=== PATIENT | male | born 1965 | race Caucasian/White ===

== ENCOUNTER 2017-01-18 06:34 | Emergency (ER) | payer OTHER ==
[~2017-01-18] VITALS: Ht 180.3 cm; Wt 79.4 kg
[~2017-01-18 06:34] MED LIST: NORCO 10MG-325MG1 EA PO; SOMA350 MG PO; Z.0.SOMA350 MG PO; [UNRECOGNIZED DRUG - OTHER] PO
[2017-01-18 07:11] LABS: BASOPHILS % 0.5 % (0.0-1.0); EOSINOPHILS # (AUTO) 0.1 (0.0-0.4); EOSINOPHILS % 1.1 % (0.0-6.0); HEMATOCRIT 44.6 % (38.2-49.6); HEMOGLOBIN 15.5 g/dL (14.0-18.0); LYMPHOCYTES # (AUTO) 2.6 (1.0-3.2); LYMPHOCYTES % 33.3 % (18.0-39.1); MEAN CORPUSCULAR HEMOGLOBIN 32.3 pg (28-32); MEAN CORPUSCULAR HGB CONC 34.8 g/dL (31-35); MEAN CORPUSCULAR VOLUME 92.9 fL (81-99); MONOCYTES # (AUTO) 0.8 (0.2-0.8); MONOCYTES % 9.6 % (4.4-11.3); NEUTROPHILS # (AUTO) 4.3 (2.1-6.9); NEUTROPHILS % 55.1 % (38.7-80.0); PLATELET COUNT 158 x10e3/uL (140-360); RED CELL DISTRIBUTION WIDTH 12.1 % (11.7-14.4)
--- NOTE | 2017-01-18 07:15 | Diagnostic Imaging Report ---
PROCEDURE: CHEST SINGLE (PORTABLE) COMPARISON: 12/28/2011. INDICATIONS: PNEUMONIA, SHORTNESS OF BREATH, WEAKNESS, COUGH FINDINGS: The lungs remain well inflated. No focal airspace consolidation, pleural effusion, or pneumothorax. Tortuosity of the thoracic aorta with an otherwise normal cardiomediastinal contour. No acute osseous abnormality. CONCLUSION: No acute cardiopulmonary abnormality. Dictated by: Markel Sarmiento M.D. on 01/18/2017 at 7:22 Electronically approved by: Markel Sarmiento M.D. on 01/18/2017 at 7:22
[2017-01-18 07:26] LABS: ALANINE AMINOTRANSFERASE 29 IU/L (0-55); ALBUMIN 4.2 g/dL (3.5-5.0); ALBUMIN/GLOBULIN RATIO 1.3 (0.8-2.0); ALKALINE PHOSPHATASE 96 IU/L (40-150); ANION GAP 11.2 mmol/L (8-16); BLOOD UREA NITROGEN 14 mg/dL (7-26); BUN/CREATININE RATIO 15 (6-25); CALCIUM 9.2 mg/dL (8.4-10.2); CARBON DIOXIDE 24 mmol/L (22-29); CHLORIDE 107 mmol/L (98-107); CREATININE, SERUM 0.91 mg/dL (0.72-1.25); EST GLOMERULAR FILTRATION RATE > 60 ML/MIN (60-); GLUCOSE 91 mg/dL (74-118); POTASSIUM 4.2 mmol/L (3.5-5.1); SODIUM 138 mmol/L (136-145)
[2017-01-18 07:34] LABS: INFLUENZAE A&B ANTIGEN (RAPID) NEGATIVE (NEGATIVE); STREPTOCOCCUS GRP A ANTIGEN NEGATIVE (NEGATIVE)
[2017-01-18 08:03] VITALS: BP 134/87
== END 2017-01-18 08:21 | disposition home or self-care (01) ==
LOC: ER 06:34
DX: R05 Cough (principal); J20.9 Acute bronchitis, unspecified; M54.2 Cervicalgia; G89.29 Other chronic pain; F17.210 Nicotine dependence, cigarettes, uncomplicated
CPT/HCPCS: 36415; 71010; 80053; 83518; 85025; 87070; 87400; 93005; 99284

== ENCOUNTER 2017-01-25 09:32 | Emergency (ER) | payer OTHER ==
[~2017-01-25] VITALS: Ht 180.3 cm; Wt 79.4 kg
[2017-01-25 11:47] LABS: BILIRUBIN,URINE NEGATIVE (NEGATIVE); KETONES,URINE NEGATIVE (NEGATIVE); LEUKOCYTE ESTERASE ,URINE NEGATIVE (NEGATIVE); NITRITE,URINE NEGATIVE (NEGATIVE); PROTEIN,URINE DIPSTICK NEGATIVE (NEGATIVE); URINE UROBILINOGEN 0.2 mg/dL (0.2 - 1)
[2017-01-25 11:54] LABS: AMPHETAMINES SCREEN,URINE NEGATIVE (NEGATIVE); BENZODIAZEPINES SCREEN,URINE NEGATIVE (NEGATIVE); CANNABINOIDS SCREEN,URINE POSITIVE (NEGATIVE); PHENCYCLIDINE SCREEN,URINE NEGATIVE (NEGATIVE)
[2017-01-25 12:03] LABS: AMORPHOUS SEDIMENT,URINE MODERATE (FEW); BACTERIA,URINE RARE /HPF; CLARITY,URINE SL CLOUDY (CLEAR); COLOR,URINE YELLOW (YELLOW); EPITHELIAL CELLS,URINE RARE /LPF
--- NOTE | 2017-01-25 13:04 | Diagnostic Imaging Report ---
PROCEDURE:CHEST SINGLE (NOT PORTABLE) TECHNIQUE:PA chest INDICATION:Chest and leg pain. COMPARISON:[facility], , CHEST SINGLE (PORTABLE), 01/18/2017, 6:48. FINDINGS: Lungs are clear and symmetrically inflated. No pleural effusions. Normal heart size, mediastinal contour, and pulmonary vasculature. Intact skeleton. CONCLUSION: Stable normal chest. Dictated by: Jed Horton M.D. on 01/25/2017 at 13:12 Electronically approved by: Jed Horton M.D. on 01/25/2017 at 13:12
[2017-01-25 13:10] LABS: BASOPHILS # (AUTO) 0.1 (0.0-0.1); BASOPHILS % 0.6 % (0.0-1.0); EOSINOPHILS # (AUTO) 0.2 (0.0-0.4); EOSINOPHILS % 1.1 % (0.0-6.0); HEMATOCRIT 44.8 % (38.2-49.6); HEMOGLOBIN 15.5 g/dL (14.0-18.0); LYMPHOCYTES # (AUTO) 4.5 (1.0-3.2); LYMPHOCYTES % 33.1 % (18.0-39.1); MEAN CORPUSCULAR HEMOGLOBIN 32.4 pg (28-32); MEAN CORPUSCULAR HGB CONC 34.6 g/dL (31-35); MEAN CORPUSCULAR VOLUME 93.7 fL (81-99); MONOCYTES # (AUTO) 1.1 (0.2-0.8); MONOCYTES % 8.1 % (4.4-11.3); NEUTROPHILS # (AUTO) 7.6 (2.1-6.9); NEUTROPHILS % 56.2 % (38.7-80.0); PLATELET COUNT 228 x10e3/uL (140-360); RED BLOOD COUNT 4.78 x10e6/uL (4.3-5.7)
[2017-01-25 13:17] LABS: INR 0.82; PARTIAL THROMBOPLASTIN TIME 27.4 seconds (23.8-35.5); PROTHROMBIN TIME 11.7 seconds (11.9-14.5)
[2017-01-25 13:26] LABS: ALANINE AMINOTRANSFERASE 25 IU/L (0-55); ALBUMIN 4.1 g/dL (3.5-5.0); ALBUMIN/GLOBULIN RATIO 1.2 (0.8-2.0); ALKALINE PHOSPHATASE 100 IU/L (40-150); BLOOD UREA NITROGEN 13 mg/dL (7-26); BUN/CREATININE RATIO 15 (6-25); CALCIUM 9.2 mg/dL (8.4-10.2); CARBON DIOXIDE 24 mmol/L (22-29); CHLORIDE 110 mmol/L (98-107); CREATINE KINASE 66 IU/L (30-200); CREATININE, SERUM 0.88 mg/dL (0.72-1.25); EST GLOMERULAR FILTRATION RATE > 60 ML/MIN (60-); GLUCOSE 107 mg/dL (74-118); SODIUM 143 mmol/L (136-145)
[2017-01-25 13:34] LABS: TROPONIN I 0.014 ng/mL (0-0.300)
== END 2017-01-25 14:34 | disposition home or self-care (01) ==
LOC: ER 09:32
DX: R07.89 Other chest pain (principal); K75.9 Inflammatory liver disease, unspecified; M54.2 Cervicalgia; G89.29 Other chronic pain
CPT/HCPCS: 36415; 71010; 80053; 80307; 81001; 82550; 82553; 83735; 83880; 84484; 85025; 85379; 85610; 85730; 87086; 93005; 99283

== ENCOUNTER 2017-01-30 12:38 | Observation (INO) | payer BC, OTHER ==
[~2017-01-30] VITALS: Ht 180.3 cm; Wt 79.4 kg
[2017-01-30] MEDS ORDERED: ASPIRIN 81 MG CHEW TAB PO ONE (13:00)
[2017-01-30 13:18] LABS: BASOPHILS # (AUTO) 0.1 (0.0-0.1); BASOPHILS % 0.5 % (0.0-1.0); EOSINOPHILS # (AUTO) 0.1 (0.0-0.4); HEMATOCRIT 44.3 % (38.2-49.6); HEMOGLOBIN 15.1 g/dL (14.0-18.0); LYMPHOCYTES # (AUTO) 3.8 (1.0-3.2); LYMPHOCYTES % 35.3 % (18.0-39.1); MEAN CORPUSCULAR HEMOGLOBIN 32.3 pg (28-32); MEAN CORPUSCULAR HGB CONC 34.1 g/dL (31-35); MEAN CORPUSCULAR VOLUME 94.7 fL (81-99); MONOCYTES # (AUTO) 0.9 (0.2-0.8); MONOCYTES % 8.4 % (4.4-11.3); NEUTROPHILS # (AUTO) 5.9 (2.1-6.9); NEUTROPHILS % 54.4 % (38.7-80.0); PLATELET COUNT 159 x10e3/uL (140-360); RED BLOOD COUNT 4.68 x10e6/uL (4.3-5.7); RED CELL DISTRIBUTION WIDTH 12.2 % (11.7-14.4)
[2017-01-30 13:20] LABS: BILIRUBIN,URINE NEGATIVE (NEGATIVE); KETONES,URINE NEGATIVE (NEGATIVE); LEUKOCYTE ESTERASE ,URINE NEGATIVE (NEGATIVE); NITRITE,URINE NEGATIVE (NEGATIVE); PROTEIN,URINE DIPSTICK NEGATIVE (NEGATIVE); URINE UROBILINOGEN 0.2 mg/dL (0.2 - 1)
--- NOTE | 2017-01-30 13:29 | Diagnostic Imaging Report ---
PROCEDURE: A single AP view of the chest. COMPARISON: 01/25/2017 INDICATIONS: CHEST PAIN, SHORTNESS OF BREATH FINDINGS: Lines/tubes: None. Lungs: The lungs are well inflated and clear. There is no evidence of pneumonia or pulmonary edema. Pleura: There is no pleural effusion or pneumothorax. Heart and mediastinum: The heart and the mediastinum are unremarkable. Bones: No acute bony abnormality. IMPRESSION: 1. No acute cardiopulmonary disease. Dictated by: Mak Bran M.D. on 01/30/2017 at 13:37 Electronically approved by: Mak Bran M.D. on 01/30/2017 at 13:37
[2017-01-30 13:30] LABS: INR 0.87; PROTHROMBIN TIME 12.3 seconds (11.9-14.5)
[2017-01-30 13:36] LABS: CLARITY,URINE SL CLOUDY (CLEAR); COLOR,URINE YELLOW (YELLOW); EPITHELIAL CELLS,URINE RARE /LPF
[2017-01-30 13:39] LABS: ALANINE AMINOTRANSFERASE 28 IU/L (0-55); ALBUMIN 4.1 g/dL (3.5-5.0); ALBUMIN/GLOBULIN RATIO 1.2 (0.8-2.0); ALKALINE PHOSPHATASE 78 IU/L (40-150); ANION GAP 12.9 mmol/L (8-16); BLOOD UREA NITROGEN 16 mg/dL (7-26); BUN/CREATININE RATIO 17 (6-25); CARBON DIOXIDE 23 mmol/L (22-29); CHLORIDE 109 mmol/L (98-107); CREATINE KINASE 79 IU/L (30-200); CREATININE, SERUM 0.93 mg/dL (0.72-1.25); EST GLOMERULAR FILTRATION RATE > 60 ML/MIN (60-); GLUCOSE 99 mg/dL (74-118); POTASSIUM 4.9 mmol/L (3.5-5.1); SODIUM 140 mmol/L (136-145)
[2017-01-30 13:41] LABS: AMPHETAMINES SCREEN,URINE NEGATIVE (NEGATIVE); BENZODIAZEPINES SCREEN,URINE NEGATIVE (NEGATIVE); CANNABINOIDS SCREEN,URINE POSITIVE (NEGATIVE); PHENCYCLIDINE SCREEN,URINE NEGATIVE (NEGATIVE)
[2017-01-30 13:45] LABS: PARTIAL THROMBOPLASTIN TIME 27.7 seconds (23.8-35.5)
[2017-01-30 13:48] LABS: TROPONIN I 0.011 ng/mL (0-0.300)
[2017-01-30] MEDS ORDERED: NITROGLYCERIN 0.4 MG SUBL SL PRN (16:15)
[2017-01-30] MEDS ORDERED: SODIUM CHLORIDE FLUSH 10 ML SYR INJ PRN (16:15)
[2017-01-30] MEDS ORDERED: ONDANSETRON HCL INJ 2 MG/ML VIAL IV PRN (16:15)
[2017-01-30] MEDS: ASPIRIN 81 MG CHEW TAB PO ONE ×2 (17:42→18:20)
--- NOTE | 2017-01-30 17:58 | History and Physical ---
DATE OF CONSULTATION: January 30, 2017 CHIEF COMPLAINT: The patient is a 51-year-old with chest pain. HISTORY OF PRESENT ILLNESS: The patient is a 51-year-old who has been having chest tightness and chest pain at home. The patient had a stress test done in my office last Sunday which was suggestive of ischemia. The patient was scheduled electively for a cardiac catheterization this Sunday on the 02 of February. Today, the patient developed worsening chest pain and decided to come to the emergency room. The patient's chest pain is subsequently resolved. PAST MEDICAL HISTORY: Significant for chronic back pain. CURRENT MEDICATIONS: [place], [place] and hydrocodone. SOCIAL HISTORY: The patient has been a heavy smoker. The patient does not drink. FAMILY HISTORY: There is family history of hypertension and heart disease. PHYSICAL EXAMINATION GENERAL: The patient is a well-nourished, well-developed male in no obvious distress. VITAL SIGNS: Temperature 98.8, pulse 68, blood pressure 130/86. HEENT: The patient's cranium was normocephalic and atraumatic. Extraocular muscles were intact. Sclerae was anicteric. Pupils were equal, around and reactive to light. There is no pallor or cyanosis of the oral mucosa. There is no erythema or edema of the throat. NECK: Supple. No jugular venous distention. No carotid bruits. CHEST: Demonstrated decreased breath sounds and rhonchi bilaterally. CARDIAC: Demonstrated normal S1 and S2 with short 2/6 systolic murmur. ABDOMEN: Demonstrated good bowel sounds, nontender and no masses. EXTREMITIES: No cyanosis, clubbing or edema. NEUROLOGIC: The patient was alert and oriented x3. Cranial nerves II-XII intact. Motor strength was 5/5 in all limbs. The patient's EKG demonstrated normal sinus rhythm with a normal record. IMPRESSION: The patient is a 51-year-old heavy smoker with recurrent chest pain concerning for angina. The patient will be admitted. The cardiac catheterization has been scheduled for tomorrow at noon. Job#: [id number]
[2017-01-30] MEDS: SODIUM CHLORIDE 0.9% 1000ML 1,000 ML IV SCH (18:20)
[2017-01-30] MEDS: NITROGLYCERIN 2% OINT 1 GM PKT TOP SCH (18:20)
[2017-01-30] MEDS: FAMOTIDINE 20 MG TAB PO SCH (18:20)
[2017-01-30] MEDS: MORPHINE SULFATE 2 MG/ML SYR IV PRN ×2 (20:01→23:50)
[2017-01-30 21:01] LABS: TROPONIN I 0.016 ng/mL (0-0.300)
[2017-01-30 22:40] VITALS: BP 107/71
[2017-01-30 23:18] VITALS: BP 117/71
[2017-01-30] MEDS ORDERED: MOTRIN200 MG PO (23:20)
[2017-01-31] MEDS: NITROGLYCERIN 2% OINT 1 GM PKT TOP SCH ×3 (01:03→12:00)
[2017-01-31] MEDS: MORPHINE SULFATE 2 MG/ML SYR IV PRN ×5 (03:29→22:25)
[2017-01-31 04:00] VITALS: BP 99/60
[2017-01-31] MEDS: FAMOTIDINE 20 MG TAB PO SCH ×2 (04:48→17:42)
[2017-01-31 06:57] LABS: BASOPHILS % 0.4 % (0.0-1.0); EOSINOPHILS # (AUTO) 0.1 (0.0-0.4); EOSINOPHILS % 1.1 % (0.0-6.0); HEMATOCRIT 40.4 % (38.2-49.6); HEMOGLOBIN 13.7 g/dL (14.0-18.0); LYMPHOCYTES # (AUTO) 3.1 (1.0-3.2); LYMPHOCYTES % 32.4 % (18.0-39.1); MEAN CORPUSCULAR HEMOGLOBIN 32.3 pg (28-32); MEAN CORPUSCULAR HGB CONC 33.9 g/dL (31-35); MEAN CORPUSCULAR VOLUME 95.3 fL (81-99); MONOCYTES # (AUTO) 0.8 (0.2-0.8); MONOCYTES % 8.5 % (4.4-11.3); NEUTROPHILS # (AUTO) 5.4 (2.1-6.9); NEUTROPHILS % 57.2 % (38.7-80.0); PLATELET COUNT 141 x10e3/uL (140-360); RED BLOOD COUNT 4.24 x10e6/uL (4.3-5.7); RED CELL DISTRIBUTION WIDTH 12.1 % (11.7-14.4)
[2017-01-31 07:25] LABS: ANION GAP 9.7 mmol/L (8-16); BLOOD UREA NITROGEN 14 mg/dL (7-26); BUN/CREATININE RATIO 14 (6-25); CALCIUM 8.9 mg/dL (8.4-10.2); CARBON DIOXIDE 28 mmol/L (22-29); CHLORIDE 108 mmol/L (98-107); CHOL/HDL RATIO 4.1 (3.9-4.7); CHOLESTEROL 142 MD/DL (0-199); CREATINE KINASE 57 IU/L (30-200); CREATININE, SERUM 1.02 mg/dL (0.72-1.25); EST GLOMERULAR FILTRATION RATE > 60 ML/MIN (60-); GLUCOSE 93 mg/dL (74-118); HDL CHOLESTEROL 35 MG/DL (40-60); LDL CHOLESTEROL 91 MG/DL (60-130); POTASSIUM 4.7 mmol/L (3.5-5.1); SODIUM 141 mmol/L (136-145); TRIGLYCERIDES 80 MG/DL (0-149)
[2017-01-31 07:34] LABS: TROPONIN I 0.019 ng/mL (0-0.300)
[2017-01-31] MEDS: ASPIRIN 81 MG ENTERIC COATED PO SCH (07:55)
[2017-01-31 08:00] VITALS: BP 101/60
[2017-01-31] MEDS: NICOTINE 21 MG/EA PATCH TOP SCH (08:35)
[2017-01-31] MEDS ORDERED: FENTANYL CITRATE/PF 100MCG/2 ML INJ ONE (11:36)
[2017-01-31] MEDS ORDERED: HEPARIN SOD/SOD CHLORIDE 2,000 ML ONE (11:36)
[2017-01-31] MEDS ORDERED: IOPAMIDOL 370 MG/ML 200 ML INFUS..BTL INJ ONE (11:36)
[2017-01-31] MEDS ORDERED: MIDAZOLAM HCL 2 MG/2 ML VIAL ONE (11:36)
[2017-01-31] MEDS ORDERED: SODIUM CHLORIDE 0.9% 1000ML 1,000 ML ONE (11:37)
[2017-01-31] MEDS ORDERED: LIDOCAINE HCL 2% LOCAL 20 ML VIAL ONE (11:43)
--- NOTE | 2017-01-31 13:41 | Operative Report ---
DATE OF PROCEDURE: OPERATION PERFORMED: Left heart catheterization. INDICATION: Chest pain. COMPLICATIONS: None. ANESTHESIA: Versed, fentanyl and lidocaine. TECHNIQUE: The right groin was draped and prepped in the usual fashion. The area was anesthetized with lidocaine. Standard Seldinger technique was used to place a 6-Bangladeshi sheath into the right femoral artery without difficulty. A JL4 catheter was used to selectively engage the left coronary artery. A 3DRC catheter was used to selectively engage the right coronary artery. A pigtail catheter was used to perform a left ventriculogram. An Angio-Seal device was used for closure. There were no complications. Results are as follows: 1. There is a normal left main trunk. 2. There is a large left anterior descending artery, which gave rise to a medium-size diagonal branch. There was about a 30% to 40% stenosis in the left anterior descending artery immediately before the origin of the diagonal branch. 3. There was a medium-size AV circumflex artery, which gave rise to a large bifurcating obtuse marginal branch. There was minimal disease in the circumflex system. 4. There was a large dominant right coronary artery with minimal disease. 5. There were normal left ventricular size and function with an ejection fraction of 60%. CONCLUSION: The patient has some mild nonobstructive coronary artery disease with normal left ventricular size and function. Job#: [id number]
[2017-01-31] MEDS: SODIUM CHLORIDE 0.9% 1000ML 1,000 ML IV SCH (13:46)
[2017-01-31 14:24] VITALS: BP 132/77
[2017-01-31] MEDS ORDERED: METHYLPREDNISOLONE SOD SUCC 125 MG/2ML VIAL IV ONE (15:45)
[2017-01-31] MEDS ORDERED: ALBUTEROL SULFATE HFA 8GM INHALATION AEROSOL INH PRN (15:45)
[2017-01-31] MEDS ORDERED: LEVALBUTEROL HCL SOLN NEBU 0.63 MG/3 ML NEB INH PRN (15:45)
--- NOTE | 2017-01-31 16:43 | Consultation ---
DATE OF CONSULTATION: January 31, 2017 PULMONARY/CRITICAL CARE CONSULTATION REFERRING PHYSICIAN: Dr. Markel Carranza. CHIEF COMPLAINT: Is cough and dyspnea. HISTORY OF PRESENT ILLNESS: This is a 51-year-old man. About 5 or 6 years ago he had pneumonia. He saw Dr. Silvio Holbrook who did a bronchoscopy at that time but did not find any evidence of cancer. Denies any prior history of asthma. The patient notes worsening dyspnea over the past several weeks. He also has some chest discomfort. He was seen in cardiology office and had an echocardiogram and a stress Cardiolite. Apparently there was some reversible ischemia. He came to the emergency department again yesterday with chest pain. He was given nitrates and sent for catheterizations today. He had no significant occlusions. PAST SURGICAL HISTORY: 1. Status post neck surgery in the cervical spine. 2. History of bronchoscopy as noted above. 3. Catheterization as noted above. ALLERGIES: THERE ARE NO KNOWN DRUG ALLERGIES. FAMILY HISTORY: The family history is significant for hypertension and heart disease. SOCIAL HISTORY: The patient has been a smoker most of his life. He is not a drinker. He works in [employer]. REVIEW OF SYSTEMS: The patient has no fever. He has no headache. He does not complain of any chest pain although he had chest pain yesterday. He does have dyspnea and some cough. He is not having any abdominal pain. He denies any nausea or vomiting. No focal abnormalities. PHYSICAL EXAMINATION: VITAL SIGNS: The patient is afebrile. Blood pressure is 132/77 and pulse ox 97%. HEENT: Examination shows no facial swelling or erythema. The nasal mucosa is normal. The oropharynx is normal. LYMPHATIC: Examination shows no submandibular, cervical or supraclavicular adenopathy. NECK: Shows no JVD or thyromegaly. There is no nuchal rigidity. CARDIAC: Exam reveals regular rate rhythm with normal S1 and S2. There are no murmurs or rubs. LUNGS: Reveals clear breath sounds bilaterally. There is no wheezing. ABDOMEN: Soft. Nontender. There is no rebound or guarding. EXTREMITIES: Shows no leg edema or calf tenderness. There is no cyanosis or clubbing. NEUROLOGIC: Exam shows no focal abnormalities. LABORATORY DATA: The CBC is normal. BUN and creatinine ratio is normal. The other electrolytes are within normal limits. RADIOGRAPHIC DATA: The chest x-ray shows no active disease. IMPRESSIONS 1. Chronic obstructive pulmonary disease secondary to prior smoking history. 2. Atypical chest pain. PLAN: 1. Patient will receive Solu-Medrol times 1 dose. 2. He will be started on long-acting anticholinergic agent such as Spiriva. 3. Albuterol inhaler as needed for rescue. 4. Smoking cessation. Patient should follow up in the office after discharge for pulmonary function testing. Job#: [id number]
[2017-01-31 17:06] LABS: CREATINE KINASE MB 0.9 ng/mL (0.00-5.00); TROPONIN I 0.022 ng/mL (0-0.300)
[2017-01-31 18:59] VITALS: BP 121/77
--- NOTE | 2017-01-31 18:59 | Diagnostic Imaging Report ---
PROCEDURE:CT CHEST WITHOUT CONTRAST COMPARISON:Chest x-ray, 01/30/17. INDICATIONS:COUGH, CORONARY ARTERY DISEASE TECHNIQUE: Axial CT images of the chest were obtained with standard protocol. Coronal and sagittal reformations were made available for review. No contrast was administered. Suboptimal evaluation of vessels and mediastinal nodes without contrast. RADIATION DOSE: Total DLP: 545.66 mGy*cm Estimated effective dose: (DLP x 0.014 x size factor) mSv FINDINGS: Lungs: No pulmonary consolidation or mass. A right upper lobe calcified granuloma is noted. Pleura:No pleural effusion, pneumothorax or pleural calcification. Heart \T\ Mediastinum:No dominant mediastinal adenopathy. Scattered small mediastinal nodes are likely reactive. No abnormal dilatation of the thoracic aorta or main pulmonary artery. Heart size normal with no pericardial effusion. Upper abdomen:Included portions of the unenhanced liver, spleen, pancreas and adrenals unremarkable. There is radiopaque material in the left renal collecting system. Correlation for possible recent administration of IV contrast elsewhere is suggested. Musculoskeletal:Superficial surrounding soft tissue unremarkable. No acute or suspicious bony lesion. Partial visualization of cervical spine fusion hardware. CONCLUSION: 1. No focal pulmonary air space opacity or mass. 2. No pleural effusion, pneumothorax or evidence for acute disease in the chest. 3. Opaque material is seen in the left renal collecting system although this is a noncontrast scan (the right renal collecting system is not included on the images). Recommend correlation for recent administration of IV contrast elsewhere. Alternatively, less likely, this may represent extensive renal calculus. Dictated by: Brian Ferrari M.D. on 01/31/2017 at 19:08 Electronically approved by: Brian Ferrari M.D. on 01/31/2017 at 19:08
[2017-01-31 20:00] VITALS: BP 130/67
[2017-01-31] MEDS ORDERED: DOCUSATE SODIUM 100 MG CAP PO PRN (21:45)
[2017-02-01] VITALS: BP 109/58
[2017-02-01 04:00] VITALS: BP_SYST 117; BP_SYST 147; BP_DIAS 76; BP_DIAS 86
[2017-02-01] MEDS ORDERED: TIOTROPIUM 18 MCG INH POWDER INH SCH (06:00)
[2017-02-01] MEDS: FAMOTIDINE 20 MG TAB PO SCH (06:13)
[2017-02-01] MEDS: MORPHINE SULFATE 2 MG/ML SYR IV PRN ×2 (06:20→10:27)
[2017-02-01 08:15] VITALS: BP 107/66
[2017-02-01] MEDS: NICOTINE 21 MG/EA PATCH TOP SCH (08:37)
[2017-02-01] MEDS: ASPIRIN 81 MG ENTERIC COATED PO SCH (08:37)
[2017-02-01] MEDS: SODIUM CHLORIDE 0.9% 1000ML 1,000 ML IV SCH (10:06)
[2017-02-01 12:43] VITALS: BP 112/69
--- NOTE | 2017-02-01 17:16 | Discharge Summary ---
ADMITTING DIAGNOSES 1. Chest pain. 2. Abnormal stress test. 3. Chronic obstructive pulmonary disease. DISPOSITION: Home with regular activity. Follow up in 1-2 weeks. DISCHARGE DIET: Cardiac diet. Life style change, smoking cessation. PROCEDURE: He underwent a left heart catheterization that showed mild nonobstructive CAD with normal LV function. EF 60%. He has been advised to return to the emergency room with any sign of chest pain or bleeding to the right groin puncture site. Dictated by Mally Santos NP GILBERT ARZOLA MD Job#: [id number]
== END 2017-02-01 14:35 | disposition home or self-care (01) ==
LOC: ER 12:38 → ERHOLD 17:13 → MED/SURG 21:25
PROVIDERS: ADMIT Internal Medicine Cardiovascular Disease; ATTEND Internal Medicine Cardiovascular Disease
DX: R07.2 Precordial pain (principal); J44.9 Chronic obstructive pulmonary disease, unspecified; R94.39 Abnormal result of other cardiovascular function study; F17.210 Nicotine dependence, cigarettes, uncomplicated
CPT/HCPCS: 36415 ×2; 71010; 71250; 80048; 80053; 80061; 80307; 81001; 82550 ×2; 82553 ×2; 83880; 84484 ×2; 85025 ×2; 85610; 85730; 87086; 93005; 93458; 99284; C1769; G0378 ×3; J2001; J2250; J2270 ×3; J2405; J2930; J7030 ×2; Q9967; 36140; 93452

== ENCOUNTER 2018-03-12 13:10 | Emergency (ER) | payer SELFPAY ==
[~2018-03-12] VITALS: Ht 180.3 cm; Wt 88.5 kg
[~2018-03-12 13:10] MED LIST changes: +MOTRIN200 MG PO
--- OUTSIDE RECORDS SUMMARY | 2018-03-12 13:14 | XMS REPORT ---
Author [email or web address] Address Unknown Phone Unavailable Care Team Providers Care Production Internship Name Role Phone GLIBERT ARZOLA Unavailable Unavailable Frantz HERNANDEZ Unavailable Unavailable La Nena FINNEGAN Unavailable Unavailable Problems This patient has no known problems. Allergies, Adverse Reactions, Alerts This patient has no known allergies or adverse reactions. Medications This patient has no known medications. Encounters Start Date/Time End Date/Time Encounter Type Admission Type Attending [facility] Facility Care Department Encounter ID 2017-01-24 08:59:00 2017-01-24 08:59:[address] [facility] [id number] 2017-01-24 07:58:00 2017-01-24 07:58:00 Emergency [facility] [id number] Results Test Description Test Time Test Comments Text Results Atomic Results Result Comments CT CHEST WO [place] [address] Patient Name: CHARITY WAGNER MR #: [id number] : 1965 Age/Sex: 51/M Req #: [id number] Adm Physician: GILBERT ARZOLA MD Ordered by: GILBERT ARZOLA MD Report #: [id number] Location: MED/SURG Room[facility]Bed: [facility] Procedure: [id number] CT/CT CHEST WO Exam Date: 01/31/17 Exam Time: 1759 REPORT STATUS: Signed PROCEDURE: CT CHEST WITHOUT CONTRAST COMPARISON: Chest x-ray, 01/30/17. INDICATIONS: COUGH, CORONARY ARTERY DISEASE TECHNIQUE: Axial CT images of the chest were obtained with standard protocol. Coronal and sagittal reformations were made available for review. No contrast was administered. Suboptimal evaluation of vessels and mediastinal nodes without contrast. RADIATION DOSE: Total DLP: 545.66 mGy*cm Estimated effective dose: (DLP x 0.014 x size factor) mSv FINDINGS: Lungs: No pulmonary consolidation or mass. A right upper lobe calcified granuloma is noted. Pleura: No pleural effusion, pneumothorax or pleural calcification. Heart T Mediastinum: No dominant mediastinal adenopathy. Scattered small mediastinal nodes are likely reactive. No abnormal dilatation of the thoracic aorta or main pulmonary artery. Heart size normal with no pericardial effusion. Upper abdomen: Included portions of the unenhanced liver, spleen, pancreas and adrenals unremarkable. There is radiopaque material in the left renal collecting system. Correlation for possible recent administration of IV contrast elsewhere is suggested. Musculoskeletal: Superficial surrounding soft tissue unremarkable. No acute or suspicious bony lesion. Partial visualization of cervical spine fusion hardware. CONCLUSION: 1. No focal pulmonary air space opacity or mass. 2. No pleural effusion, pneumothorax or evidence for acute disease in the chest. 3. Opaque material is seen in the left renal collecting system although this is a noncontrast scan (the right renal collecting system is not included on the images). Recommend correlation for recent administration of IV contrast elsewhere. Alternatively, less likely, this may represent extensive renal calculus. Dictated by: Tre Hernández M.D. on 01/31/2017 at 19:08 Electronically approved by: Tre Hernández M.D. on 01/31/2017 at 19:08 Dictated By: TRE HERNÁNDEZ MD 07 Transcribed By: LARISSA on 01/31/171907 COPY TO: GILBERT ARZOLA MD CHEST SINGLE (NOT PORTABLE) [place] [address] Patient Name: CHARITY WAGNER MR #: [id number] : 1965 Age/Sex: 51/M Req #: [id number] Adm Physician: Ordered by: TRE LEAL MD Report #: [id number] Location: ER Room/Bed: Procedure: [id number] DX/CHEST SINGLE (NOT PORTABLE) Exam Date: 01/30/17 Exam Time: 1310 REPORT STATUS: Signed PROCEDURE: A single AP view of the chest. COMPARISON: 01/25/2017 INDICATIONS: CHEST PAIN, SHORTNESS OF BREATH FINDINGS: Lines/tubes: None. Lungs: The lungs are well inflated and clear. There is no evidence of pneumonia or pulmonary edema. Pleura: There is no pleural effusion or pneumothorax. Heart and mediastinum: The heart and the mediastinum are unremarkable. Bones: No acute bony abnormality. IMPRESSION: 1. No acute cardiopulmonary disease. Dictated by: Hannah Bran M.D. on 01/30/2017 at 13:37 Electronically approved by: Hannah Bran M.D. on 01/30/2017 at 13:37 Dictated By: HANNAH BRAN MD 36 Transcribed By: LARISSA on 01/30/171336 COPY TO: TRE LEAL MD CHEST SINGLE (NOT PORTABLE) [place] [address] Patient Name: CHARITY WAGNER MR #: [id number] : 1965 Age/Sex: 51/M Req #: [id number] Adm Physician: Ordered by: CATHERINE HERNANDEZ MD Report #: [id number] Location: ER Room/Bed: Procedure: [id number] DX/CHEST SINGLE (NOT PORTABLE) Exam Date: 01/25/17 Exam Time: 1226 REPORT STATUS: Signed PROCEDURE: CHEST SINGLE (NOT PORTABLE) TECHNIQUE: PA chest INDICATION: Chest and leg pain. COMPARISON: [facility], DX, CHEST SINGLE (PORTABLE), 01/18/2017, 6:48. FINDINGS: Lungs are clear and symmetrically inflated. No pleural effusions. Normal heart size, mediastinal contour, and pulmonary vasculature. Intact skeleton. CONCLUSION: Stable normal chest. Dictated by: Ramin Horton M.D. on 01/25/2017 at 13:12 Electronically approved by: Ramin Horton M.D. on 01/25/2017 at 13:12 Dictated By: RAMIN HORTON MD 1312 Transcribed By: LARISSA on 01/25/17 1312 COPY TO: CATHERINE HERNANDEZ MD CHEST SINGLE (PORTABLE) [place] [address] Patient Name: CHARITY WAGNER MR #: [id number] : 1965 Age/Sex: 51/M Req #: [id number] Adm Physician: Ordered by: DEANNE FINNEGAN MD Report #: [id number] Location: ER Room/Bed: Procedure: [id number] DX/CHEST SINGLE (PORTABLE) Exam Date: 01/18/17 Exam Time: 0645 REPORT STATUS: Signed PROCEDURE: CHEST SINGLE (PORTABLE) COMPARISON: 12/28/2011. INDICATIONS: PNEUMONIA, SHORTNESS OF BREATH, WEAKNESS, COUGH FINDINGS: The lungs remain well inflated. No focal airspace consolidation, pleural effusion, or pneumothorax. Tortuosity of the thoracic aorta with an otherwise normal cardiomediastinal contour. No acute osseous abnormality. CONCLUSION: No acute cardiopulmonary abnormality. Dictated by: Gilbert Carlin M.D. on 01/18/2017 at 7:22 Electronically approved by: Gilbert Carlin M.D. on 01/18/2017 at 7:22 Dictated By: GILBERT CARLIN MD 1 Transcribed By: LARISSA on 01/18/17721 COPY TO: DEANNE FINNEGAN MD
--- NOTE | 2018-03-12 15:14 | Diagnostic Imaging Report ---
EXAMINATION: CHEST 2 VIEWS INDICATION: Cough. Pneumonia. ^rule out pneuomina, has productive cough ^[id number] ^1400 COMPARISON: January 18, 2017 FINDINGS: TUBES and LINES: None. LUNGS: Lungs are well inflated. Perihilar peribronchial hazy opacity could be due to bronchitis. There is no evidence of pneumonia or pulmonary edema. PLEURA: No pleural effusion or pneumothorax. HEART AND MEDIASTINUM: The cardiomediastinal silhouette is unremarkable. BONES AND SOFT TISSUES: No acute osseous lesion. Soft tissues are unremarkable. UPPER ABDOMEN: No free air under the diaphragm. IMPRESSION: Perihilar peribronchial hazy opacity could be due to bronchitis. Signed by: Dr. Hiro Jung M.D. on 03/12/2018 3:10 PM
[2018-03-12] MEDS ORDERED: AZITHROMYCIN250 MG PO (15:22)
[2018-03-12] MEDS ORDERED: NICODERM CQ1 EAC1 TD (16:11)
== END 2018-03-12 17:27 | disposition home or self-care (01) ==
LOC: ER 13:10
DX: R05 Cough (principal); H92.03 Otalgia, bilateral; J20.9 Acute bronchitis, unspecified; F17.210 Nicotine dependence, cigarettes, uncomplicated
CPT/HCPCS: 71046; 99283

== ENCOUNTER 2018-10-20 08:58 | Emergency (ER) | payer OTHER ==
[~2018-10-20] VITALS: Ht 180.3 cm; Wt 88.5 kg
[~2018-10-20 08:58] MED LIST changes: +AZITHROMYCIN250 MG PO; +NICODERM CQ1 EAC1 TD
[2018-10-20] MEDS ORDERED: SODIUM CHLORIDE 0.9% 1000ML 1,000 ML IV STA (09:15)
[2018-10-20] MEDS ORDERED: ALBUTEROL SULF 0.5% NEB SOLN 20 ML BTL ONE (09:37)
[2018-10-20] MEDS ORDERED: ALBUTEROL SULF 0.083% NEB SOLN 3 ML NEB ONE (09:38)
[2018-10-20] MEDS ORDERED: IPRATROPIUM BROMIDE 0.02% 2.5 ML NEB ONE (09:38)
[2018-10-20 09:41] LABS: BASOPHILS % 0.3 % (0.0-1.0); EOSINOPHILS % 0.2 % (0.0-6.0); HEMATOCRIT 42.5 % (38.2-49.6); HEMOGLOBIN 14.4 g/dL (14.0-18.0); LYMPHOCYTES # (AUTO) 1.1 (1.0-3.2); LYMPHOCYTES % 10.7 % (18.0-39.1); MEAN CORPUSCULAR HEMOGLOBIN 31.6 pg (28-32); MEAN CORPUSCULAR HGB CONC 33.9 g/dL (31-35); MEAN CORPUSCULAR VOLUME 93.4 fL (81-99); MONOCYTES # (AUTO) 1.4 (0.2-0.8); MONOCYTES % 14.1 % (4.4-11.3); NEUTROPHILS # (AUTO) 7.4 (2.1-6.9); NEUTROPHILS % 73.3 % (38.7-80.0); PLATELET COUNT 145 x10e3/uL (140-360); RED BLOOD COUNT 4.55 x10e6/uL (4.3-5.7); RED CELL DISTRIBUTION WIDTH 12.1 % (11.7-14.4)
[2018-10-20 09:42] LABS: BILIRUBIN,URINE SMALL (NEGATIVE); CLARITY,URINE SL CLOUDY (CLEAR); COLOR,URINE YELLOW (YELLOW); KETONES,URINE NEGATIVE (NEGATIVE); LEUKOCYTE ESTERASE ,URINE NEGATIVE (NEGATIVE); NITRITE,URINE NEGATIVE (NEGATIVE); PROTEIN,URINE DIPSTICK 2+ (NEGATIVE); URINE UROBILINOGEN 0.2 mg/dL (0.2 - 1)
[2018-10-20 09:49] LABS: BACTERIA,URINE FEW /HPF; EPITHELIAL CELLS,URINE FEW /LPF; RBC,URINE 0-5 /HPF (0-5); WBC,URINE (MAN) 0-5 /HPF (0-5)
[2018-10-20 09:50] LABS: AMORPHOUS SEDIMENT,URINE FEW (FEW); MUCUS,URINE FEW (RARE)
[2018-10-20 09:51] LABS: INR 0.92; PROTHROMBIN TIME 12.9 seconds (11.9-14.5)
[2018-10-20 09:52] LABS: PARTIAL THROMBOPLASTIN TIME 27.5 seconds (23.8-35.5)
[2018-10-20 09:59] LABS: ALANINE AMINOTRANSFERASE 35 IU/L (0-55); ALBUMIN 3.5 g/dL (3.5-5.0); ALKALINE PHOSPHATASE 74 IU/L (40-150); ANION GAP 14.6 mmol/L (8-16); BLOOD UREA NITROGEN 12 mg/dL (7-26); BUN/CREATININE RATIO 13 (6-25); CALCIUM 9.1 mg/dL (8.4-10.2); CARBON DIOXIDE 23 mmol/L (22-29); CHLORIDE 104 mmol/L (98-107); CREATINE KINASE 101 IU/L (30-200); CREATININE, SERUM 0.96 mg/dL (0.72-1.25); EST GLOMERULAR FILTRATION RATE > 60 ML/MIN (60-); GLUCOSE 149 mg/dL (74-118); POTASSIUM 3.6 mmol/L (3.5-5.1); SODIUM 138 mmol/L (136-145)
[2018-10-20] MEDS ORDERED: ALBUTEROL SULF 0.083% NEB SOLN 3 ML NEB NEB ONE (10:00)
[2018-10-20] MEDS ORDERED: METHYLPREDNISOLONE SOD SUCC 125 MG/2ML VIAL IV ONE (10:00)
[2018-10-20] MEDS ORDERED: IPRATROPIUM BROMIDE 0.02% 2.5 ML NEB NEB ONE (10:00)
[2018-10-20] MEDS ORDERED: ALBUTEROL0.63 MG/3 (10:09)
[2018-10-20 10:10] LABS: B-TYPE NATRIURETIC PEPTIDE2 < 10.0 pg/mL (0-100)
--- NOTE | 2018-10-20 10:15 | Diagnostic Imaging Report ---
Frontal and lateral views of the chest. HISTORY: Shortness of breath, tingling, COPD COMPARISON: Chest radiographs March 12, 2018 DISCUSSION: Lungs: Mild left lower lobe volume loss with patchy interstitial and airspace opacities. Pleura: Trace blunting of the left costophrenic angle. Heart and mediastinum: The cardiomediastinal silhouette appear(s) unremarkable. Bones and soft tissues: Partially visualized cervical fixation hardware. IMPRESSION: 1. Left lower lobe atelectasis versus pneumonia or aspiration in the appropriate setting. 2. Trace left pleural effusion versus pleural thickening. Signed by: Dr. Lasha Gonsales D.O., M.M.M. on 10/20/2018 10:11 AM
[2018-10-20 10:20] LABS: FREE THYROXINE INDEX 2.1135 (1.4-3.8); THYROID STIMULATING HORMONE 0.71 uIU/mL (0.350-4.940)
[2018-10-20 11:14] VITALS: BP 107/70
== END 2018-10-20 11:28 | disposition home or self-care (01) ==
LOC: ER 08:58
DX: R05 Cough (principal); J44.1 Chronic obstructive pulmonary disease with (acute) exacerbation; J20.9 Acute bronchitis, unspecified; M54.2 Cervicalgia; G89.29 Other chronic pain
CPT/HCPCS: 36415; 71046; 80053; 81001; 82550; 82553; 83605; 83735; 83880; 84436; 84443; 84479; 84484; 85025; 85610; 85730; 87040; 87086; 93005; 99284; J2930; J7030

== ENCOUNTER 2021-04-12 17:24 | Emergency (ER) | payer BC, OTHER ==
[~2021-04-12] VITALS: Ht 180.3 cm; Wt 88.5 kg
[~2021-04-12 17:24] MED LIST changes: +ALBUTEROL0.63 MG/3
[2021-04-12] MEDS ORDERED: KETOROLAC TROMETHAMINE 60 MG/2 ML VIAL IM NR (17:45)
[2021-04-12] MEDS ORDERED: CLINDAMYCIN PHOS 900MG/ 50ML 50 ML IV ONE (17:45)
[2021-04-12] MEDS ORDERED: DEXAMETHASONE SOD PHOS 10 MG/1 ML VIAL IV NR (17:45)
[2021-04-12 17:58] LABS: BASOPHILS # (AUTO) 0.1 (0.0-0.1); BASOPHILS % 0.3 % (0.0-1.0); EOSINOPHILS % 0.2 % (0.0-6.0); HEMATOCRIT 45.1 % (38.2-49.6); HEMOGLOBIN 15.4 g/dL (14.0-18.0); LYMPHOCYTES # (AUTO) 3.3 (1.0-3.2); LYMPHOCYTES % 22.6 % (18.0-39.1); MEAN CORPUSCULAR HEMOGLOBIN 32.4 pg (28-32); MEAN CORPUSCULAR HGB CONC 34.1 g/dL (31-35); MEAN CORPUSCULAR VOLUME 94.9 fL (81-99); MONOCYTES # (AUTO) 1.7 (0.2-0.8); MONOCYTES % 11.8 % (4.4-11.3); NEUTROPHILS # (AUTO) 9.2 (2.1-6.9); NEUTROPHILS % 64.2 % (38.7-80.0); PLATELET COUNT 190 x10e3/uL (140-360); RED BLOOD COUNT 4.75 x10e6/uL (4.3-5.7); RED CELL DISTRIBUTION WIDTH 12.1 % (11.7-14.4)
[2021-04-12 18:14] LABS: ALBUMIN 4.1 g/dL (3.5-5.0); ALBUMIN/GLOBULIN RATIO 1.2 (0.8-2.0); ANION GAP 12.3 mmol/L (8-16); CALCIUM 9.4 mg/dL (8.4-10.2); CREATININE, SERUM 1.08 mg/dL (0.72-1.25); POTASSIUM 4.3 mmol/L (3.5-5.1)
[2021-04-12] MEDS ORDERED: PIPERACILLIN/TAZOBACTAM 3.375 GM in SODIUM CHLORIDE 0.9% 50ML 50 ML IV STA (20:40)
[2021-04-12] MEDS ORDERED: PREDNISONE20 MG PO (21:22)
[2021-04-12] MEDS ORDERED: ACETAMINOPHEN-1 EAC4 PO (21:22)
[2021-04-12] MEDS ORDERED: CLINDAMYCIN HC300 MG PO (21:22)
[2021-04-12] MEDS ORDERED: IOPAMIDOL 370 MG/ML 200 ML INFUS..BTL INJ ONE (22:15)
[2021-04-12] MEDS ORDERED: SODIUM CHLORIDE 0.9% 50ML 50 ML ONE (22:15)
== END 2021-04-12 21:39 | disposition home or self-care (01) ==
LOC: ER 17:54
DX: K04.7 Periapical abscess without sinus (principal); J44.9 Chronic obstructive pulmonary disease, unspecified; M54.2 Cervicalgia; G89.29 Other chronic pain; Z87.19 Personal history of other diseases of the digestive system
CPT/HCPCS: 36415; 70487; 80053; 85025; 99283; J1100; J1885; J2543; Q9967

== ENCOUNTER 2024-03-10 11:38 | Emergency (ER) | payer BC ==
[~2024-03-10] VITALS: Ht 180.3 cm; Wt 88.5 kg
[~2024-03-10 11:38] MED LIST changes: +ACETAMINOPHEN-1 EAC4 PO; +CLINDAMYCIN HC300 MG PO; +FLOMAX0.4 MG PO; +ONDANSETRON ODT4 MG PO; +PREDNISONE20 MG PO
[2024-03-10 12:15] VITALS: TEMP 98
[2024-03-10] MEDS ORDERED: SODIUM CHLORIDE FLUSH 10 ML SYR INJ PRN (12:30)
[2024-03-10 12:44] LABS: BASOPHILS # (AUTO) 0.1 (0.0-0.1); BASOPHILS % 0.5 % (0.0-1.0); EOSINOPHILS # (AUTO) 0.1 (0.0-0.4); EOSINOPHILS % 0.5 % (0.0-6.0); HEMATOCRIT 45.1 % (38.2-49.6); HEMOGLOBIN 15.4 g/dL (14.0-18.0); LYMPHOCYTES # (AUTO) 3.8 (1.0-3.2); LYMPHOCYTES % 32.5 % (18.0-39.1); MEAN CORPUSCULAR HGB CONC 34.1 g/dL (31-35); MEAN CORPUSCULAR VOLUME 93.6 fL (81-99); MONOCYTES % 8.7 % (4.4-11.3); NEUTROPHILS # (AUTO) 6.8 (2.1-6.9); NEUTROPHILS % 57.4 % (38.7-80.0); PLATELET COUNT 174 x10e3/uL (140-360); RED BLOOD COUNT 4.82 x10e6/uL (4.3-5.7); RED CELL DISTRIBUTION WIDTH 12.6 % (11.7-14.4); WHITE BLOOD COUNT 11.83 x10e3/uL (4.8-10.8)
[2024-03-10 13:02] LABS: INR 0.95; PROTHROMBIN TIME 13.3 seconds (11.9-14.5)
[2024-03-10 13:03] LABS: PARTIAL THROMBOPLASTIN TIME 29.5 seconds (23.8-35.5)
[2024-03-10 13:09] LABS: ALANINE AMINOTRANSFERASE 35 IU/L (0-55); ALBUMIN 4.6 g/dL (3.5-5.0); ALBUMIN/GLOBULIN RATIO 1.9 (0.8-2.0); ALKALINE PHOSPHATASE 92 IU/L (40-150); ANION GAP 13.2 mmol/L (8-16); BILIRUBIN,TOTAL 0.5 mg/dL (0.2-1.2); BLOOD UREA NITROGEN 14 mg/dL (7-26); BUN/CREATININE RATIO 15 (6-25); CALCIUM 9.2 mg/dL (8.4-10.2); CARBON DIOXIDE 22 mmol/L (22-29); CHLORIDE 110 mmol/L (98-107); CREATININE, SERUM 0.93 mg/dL (0.72-1.25); EST GLOMERULAR FILTRATION RATE 96 ML/MIN (>=60); GLUCOSE 93 mg/dL (74-118); MAGNESIUM 2.3 MG/DL (1.3-2.1); PHOSPHORUS 3.5 MG/DL (2.3-4.7); POTASSIUM 4.2 mmol/L (3.5-5.1); SODIUM 141 mmol/L (136-145)
[2024-03-10] MEDS: KETOROLAC TROMETHAMINE 30 MG/ML VIAL IV STA (13:13)
[2024-03-10 13:14] LABS: ETHANOL < 10.0 mg/dL (0.0-10.0)
[2024-03-10 13:16] VITALS: BP 186/109
[2024-03-10] MEDS: HYDRALAZINE HCL 20 MG/ML VIAL IV STA (13:16)
[2024-03-10 13:34] LABS: AMPHETAMINES SCREEN,URINE NEGATIVE (NEGATIVE); BENZODIAZEPINES SCREEN,URINE NEGATIVE (NEGATIVE); CANNABINOIDS SCREEN,URINE POSITIVE (NEGATIVE); COCAINE SCREEN,URINE NEGATIVE (NEGATIVE); METHADONE SCREEN, URINE NEGATIVE (NEGATIVE); OPIATES SCREEN,URINE POSITIVE (NEGATIVE); PHENCYCLIDINE SCREEN,URINE NEGATIVE (NEGATIVE)
[2024-03-10] MEDS: ONDANSETRON HCL INJ 2MG/ML 2ML 2 MG/ML VIAL IV STA (14:08)
[2024-03-10] MEDS: LORAZEPAM INJ 2 MG/ML VIAL IV ONE (14:10)
[2024-03-10] MEDS: Morphine 4mg INJECTION 4 MG/ML INJ IV ONE (14:11)
[2024-03-10 16:00] VITALS: PULSE 60; RESP 11; O2SAT 100
[2024-03-10] MEDS ORDERED: CYCLOBENZAPRINE10 MG PO (16:23)
== END 2024-03-10 16:37 | disposition home or self-care (01) ==
LOC: ER 12:25
DX: M54.12 Radiculopathy, cervical region (principal); M48.02 Spinal stenosis, cervical region; J44.9 Chronic obstructive pulmonary disease, unspecified; G89.29 Other chronic pain
CPT/HCPCS: 36415; 70450; 71045; 72141; 80053; 80307; 80320; 83735; 84100; 85025; 85610; 85730; 93005; 94760; 99284; J0360; J1885; J2060; J2270; J2405

== ENCOUNTER → 2024-04-14 | Outpatient (REF) | payer BC ==
[~2024-04-14] MED LIST changes: +CYCLOBENZAPRINE10 MG PO
== END ==
LOC: RAD 11:54
PROVIDERS: ATTEND Neurological Surgery
DX: M50.021 Cervical disc disorder at C4-C5 level with myelopathy (principal)
CPT/HCPCS: 72052